=== PATIENT | male | born 1940 | race Caucasian/White ===

== ENCOUNTER → 2023-12-28 08:45 | Outpatient (REF) | payer MEDICARE, OTHER, SELFPAY | LOC: RAD 08:45 | PROVIDERS: ATTENDING PHYSICIAN Nurse Practitioner; FAMILY PHYSICIAN Family Medicine | DX: I71.00 Dissection of unspecified site of aorta (principal); R06.09 Other forms of dyspnea; R09.89 Other specified symptoms and signs involving the circulatory and respiratory systems | CPT/HCPCS: 93880 ==

== ENCOUNTER → 2024-01-28 10:20 | Outpatient (REF) | payer MEDICARE, OTHER, SELFPAY | LOC: RAD 10:20 | PROVIDERS: ATTENDING PHYSICIAN Surgery Vascular Surgery; FAMILY PHYSICIAN Family Medicine | DX: I71.40 Abdominal aortic aneurysm, without rupture, unspecified (principal) | CPT/HCPCS: 76770 ==

== ENCOUNTER → 2024-05-12 08:52 | Outpatient (REF) | payer MEDICARE, OTHER, SELFPAY ==
[2024-05-12 11:37] LABS: Blood Urea Nitrogen 19 mg/dl (9-20); Calcium 9.7 mg/dl (8.4-10.2); Carbon Dioxide 27 mmol/L (22-30); Chloride 105 mmol/L (98-107); Glucose 112 mg/dl (70-99); Potassium 4.2 mmol/L (3.5-5.1); Sodium 140 mmol/L (135-145); eGFR > 60.00
== END ==
LOC: HWLAB 08:52
PROVIDERS: ATTENDING PHYSICIAN Thoracic Surgery (Cardiothoracic Vascular Surgery); FAMILY PHYSICIAN Family Medicine
DX: I71.010 Dissection of ascending aorta (principal); I35.9 Nonrheumatic aortic valve disorder, unspecified; I71.21 Aneurysm of the ascending aorta, without rupture
CPT/HCPCS: 36415; 80048

== ENCOUNTER → 2024-05-19 09:39 | Outpatient (REF) | payer MEDICARE, OTHER, SELFPAY | LOC: HWRAD 09:39 | PROVIDERS: ATTENDING PHYSICIAN Thoracic Surgery (Cardiothoracic Vascular Surgery); FAMILY PHYSICIAN Family Medicine | DX: I71.010 Dissection of ascending aorta (principal); I71.21 Aneurysm of the ascending aorta, without rupture; I35.9 Nonrheumatic aortic valve disorder, unspecified; Z86.73 Personal history of transient ischemic attack (TIA), and cerebral infarction without residual deficits | CPT/HCPCS: 71275; Q9967 ==

== ENCOUNTER → 2025-04-29 09:55 | Outpatient (REF) | payer MEDICARE, OTHER, SELFPAY | LOC: RAD 09:55 | PROVIDERS: ATTENDING PHYSICIAN Surgery Vascular Surgery; FAMILY PHYSICIAN Family Medicine | DX: I71.40 Abdominal aortic aneurysm, without rupture, unspecified (principal) | CPT/HCPCS: 76770 ==